=== PATIENT | male | born 1965 | race American Indian/Alaskan Native ===

== ENCOUNTER 2018-03-02 08:24 | Observation (INO) | payer OTHER ==
[2018-03-02 08:28] VITALS: BMI 27.2
--- NOTE | 2018-03-02 09:17 | ED PDOC ---
Syncope/Near Syncope/Dizziness Time Seen by Provider: 03/02/18 08:30 Chief Complaint (Nursing): Syncope Chief Complaint (Provider): Syncope History Per: Patient History/Exam Limitations: no limitations Onset/Duration Of Symptoms: Sudden Onset Possible Causative Factor(s): Vertigo Additional Complaint(s): 52 years old male presents to the ED for evaluation of dizziness and passing out on train prior to arrival. Patient cannot recall how the event of loss of consciousness happened. He denies any shortness of breath or chest pain. PMD: Dr. Ellison Past Medical History Reviewed: Historical Data, Nursing Documentation, Vital Signs Vital Signs: Last Vital Signs Temp 96.8 F L 03/02/18 08:28 Pulse 51 L 03/02/18 08:28 Resp 16 03/02/18 08:28 BP 138/81 03/02/18 08:28 Pulse Ox 98 03/02/18 08:28 - Medical History PMH: No Chronic Diseases - Surgical History Surgical History: No Surg Hx - Family History Family History: States: Unknown Family Hx - Social History Current smoker - smoking cessation education provided: Yes (Occasional) Alcohol: Occasional Drugs: Denies - Allergies Allergies/Adverse Reactions: Allergies Allergy/AdvReac Type Severity Reaction Status Date / Time Penicillins Allergy RASH Verified 03/02/18 08:35 Review of Systems ROS Statement: Except As Marked, All Systems Reviewed And Found Negative Cardiovascular: Negative for: Chest Pain Respiratory: Negative for: Shortness of Breath Neurological: Positive for: Dizziness Physical Exam - Reviewed Nursing Documentation Reviewed: Yes Vital Signs Reviewed: Yes - Physical Exam Appears: Positive for: Non-toxic, No Acute Distress Head Exam: Positive for: ATRAUMATIC, NORMOCEPHALIC Skin: Positive for: Normal Color, Warm, Dry Eye Exam: Positive for: Normal appearance ENT: Positive for: Normal ENT Inspection Neck: Positive for: Normal Cardiovascular/Chest: Positive for: Regular Rate, Rhythm. Negative for: Murmur Respiratory: Positive for: Normal Breath Sounds. Negative for: Respiratory Distress Gastrointestinal/Abdominal: Positive for: Normal Exam, Soft. Negative for: Tenderness Extremity: Positive for: Normal ROM Neurologic/Psych: Positive for: Alert, work over rig operator II-XII, Oriented, Gait (stable). Negative for: Motor/Sensory Deficits, Aphasia, Facial Droop - Laboratory Results Result Diagrams: 03/03/18 04:20 03/03/18 04:20 - ECG O2 Sat by Pulse Oximetry: 98 (RA) Pulse Ox Interpretation: Normal Medical Decision Making Medical Decision Making: Time: 904 Initial Impression: syncope, rule out cardiac ischemia Initial Plan: --CBC --CMP --Troponin --Chest X-Ray --Aspirin 325 mg PO Time: 844 EKG shows bradycardia with flipped T waves, 3 AVF V5 and V6. we have no prior. Time: 09 EKG repeated with a question of elevation of lateral lead. Results sent to Dr. Mazariegos who said it is not STEMI. Dr Mazariegos requested repetition of EKG in one hour and send it to him along with Troponin results. Time: 100 Chest X-Ray FINDINGS: LUNGS: No active pulmonary disease. PLEURA: No significant pleural effusion identified, no pneumothorax apparent. CARDIOVASCULAR: Normal. OSSEOUS STRUCTURES: No significant abnormalities. VISUALIZED UPPER ABDOMEN: Normal. OTHER FINDINGS: None. IMPRESSION: No active disease. Time: 1002 --Toponin results are within limits. --Results discussed again with Dr. Mazariegos who requested repeating Troponin in 1 hour. --Repeat EKG no change from prior Time: 105 Patient will be admitted for abnormal EKG and syncope. Time: 1145 CT Head FINDINGS: HEMORRHAGE: No intracranial hemorrhage. BRAIN: No mass effect or edema. No atrophy or chronic microvascular ischemic changes. VENTRICLES: Unremarkable. Patent cavum vergae. No hydrocephalus. CALVARIUM: Unremarkable. PARANASAL SINUSES: Unremarkable as visualized. No significant inflammatory changes. MASTOID AIR CELLS: Unremarkable as visualized. No inflammatory changes. OTHER FINDINGS: None. IMPRESSION: No acute intracranial pathology. Time: 1148 Repeat Troponin is withing normal limits. Patient is to be admitted to Dr. Dao who is medical service. 1155 dr Lon Beatty, the supervisor dehydrogenation electronics engineering professor, is aware of consult. ----- Scribe Attestation: Documented by Dary Gold, acting as a scribe for Pelon Dozier MD. Provider Scribe Attestation: All medical record entries made by the Scribe were at my direction and personally dictated by me. I have reviewed the chart and agree that the record accurately reflects my personal performance of the history, physical exam, medical decision making, and the department course for this patient. Disposition - Clinical Impression Clinical Impression: Syncope, Abnormal EKG - Patient ED Disposition Is Patient to be Admitted: Yes Counseled Patient/Family Regarding: Studies Performed, Diagnosis, Need For Followup - Disposition Disposition: Routine/Home Disposition Time: 11:25 Condition: STABLE
[2018-03-02 09:26] LABS: BASO % 0.4 % (0.0-2.0); EOS # 0.1 K/uL (0.0-0.7); EOS % 1.7 % (0.0-4.0); HEMOGLOBIN 14.9 g/dL (12.0-18.0); LYMPH # 3.1 K/uL (1.0-4.3); LYMPH % 56.9 % (20.0-40.0); MEAN CELL VOLUME 92.5 fl (80.0-94.0); MEAN CORPUSCULAR HEMOGLOBIN 31.8 pg (27.0-31.0); MEAN CORPUSCULAR HGB CONC 34.4 g/dL (33.0-37.0); MEAN PLATELET VOLUME 7.8 fl (7.2-11.7); MONO # 0.5 K/uL (0.0-0.8); MONO % 8.6 % (0.0-10.0); NEUT # 1.8 K/uL (1.8-7.0); NEUT % 32.4 % (50.0-75.0); NRBC % 0.1 % (0.0-0.0); RBC 4.69 Mil/uL (4.40-5.90); RED CELL DISTRIBUTION WIDTH 14.2 % (11.5-14.5); WHITE BLOOD COUNT 5.5 K/uL (4.8-10.8)
[2018-03-02 09:34] LABS: ALB/GLOB RATIO 1.1 (1.0-2.1); ALBUMIN 3.9 g/dL (3.5-5.0); ALT/SGPT 23 U/L (21-72); AST/SGOT 25 U/L (17-59); BLOOD UREA NITROGEN 13 mg/dl (9-20); CALCIUM 9.3 mg/dL (8.4-10.2); GFR AFRICAN-AMERICAN > 60; GFR NON-AFRICAN AMERICAN > 60
--- NOTE | 2018-03-02 10:03 | RAD ---
HISTORY: syncope COMPARISON: No prior. FINDINGS: LUNGS: No active pulmonary disease. PLEURA: No significant pleural effusion identified, no pneumothorax apparent. CARDIOVASCULAR: Normal. OSSEOUS STRUCTURES: No significant abnormalities. VISUALIZED UPPER ABDOMEN: Normal. OTHER FINDINGS: None. IMPRESSION: No active disease.
--- NOTE | 2018-03-02 11:46 | CT ---
PROCEDURE: CT HEAD WITHOUT CONTRAST. HISTORY: syncope COMPARISON: None available. TECHNIQUE: Axial computed tomography images were obtained through the head/brain without intravenous contrast. Radiation dose: Total exam DLP = 814.2 mGy-cm. This CT exam was performed using one or more of the following dose reduction techniques: Automated exposure control, adjustment of the mA and/or kV according to patient size, and/or use of iterative reconstruction technique. FINDINGS: HEMORRHAGE: No intracranial hemorrhage. BRAIN: No mass effect or edema. No atrophy or chronic microvascular ischemic changes. VENTRICLES: Unremarkable. Patent cavum vergae. No hydrocephalus. CALVARIUM: Unremarkable. PARANASAL SINUSES: Unremarkable as visualized. No significant inflammatory changes. MASTOID AIR CELLS: Unremarkable as visualized. No inflammatory changes. OTHER FINDINGS: None. IMPRESSION: No acute intracranial pathology.
--- NOTE | 2018-03-02 12:04 | CP.PCM.CON ---
History of Present Illness - History of Present Illness History of Present Illness: 52 years old male presents to the ED for evaluation of dizziness and passing out on train prior to arrival. Patient cannot recall how the event of loss of consciousness happened. He denies any shortness of breath or chest pain. Past Patient History - Past Social History Alcohol: Occasional Drugs: Denies - PSYCHIATRIC Hx Substance Use: No - SURGICAL HISTORY Hx Surgeries: No - ANESTHESIA Hx Anesthesia: No Meds Allergies/Adverse Reactions: Allergies Allergy/AdvReac Type Severity Reaction Status Date / Time Penicillins Allergy RASH Verified 03/02/18 08:35 Results - Vital Signs Recent Vital Signs: Last Vital Signs Temp 96.8 F L 03/02/18 08:28 Pulse 51 L 03/02/18 08:28 Resp 16 03/02/18 08:28 BP 138/81 03/02/18 08:28 Pulse Ox 98 03/02/18 12:02 - Labs Result Diagrams: 03/02/18 09:10 03/02/18 09:10 Labs: Laboratory Results - last 24 hr 03/02/18 03/02/18 03/02/18 09:10 09:10 10:59 WBC 5.5 RBC 4.69 Hgb 14.9 Hct 43.4 MCV 92.5 MCH 31.8 H MCHC 34.4 RDW 14.2 Plt Count 294 MPV 7.8 Neut % (Auto) 32.4 L Lymph % (Auto) 56.9 H [place] % (Auto) 8.6 Eos % (Auto) 1.7 Baso % (Auto) 0.4 Neut # (Auto) 1.8 Lymph # (Auto) 3.1 [place] # (Auto) 0.5 Eos # (Auto) 0.1 Baso # (Auto) 0.0 Sodium 140 Potassium 4.3 Chloride 103 Carbon Dioxide 27 Anion Gap 14 BUN 13 Creatinine 1.2 Est GFR ( Amer) > 60 Est GFR (Non-Af Amer) > 60 Random Glucose 128 H Calcium 9.3 Total Bilirubin 0.5 AST 25 ALT 23 Alkaline Phosphatase 85 Troponin I < 0.0120 < 0.0120 Total Protein 7.6 Albumin 3.9 Globulin 3.7 Albumin/Globulin Ratio 1.1
--- NOTE | 2018-03-02 16:42 | CARD ---
APPROVED REPORT EKG Measurement Heart [id number] IN [id number] <Conclusion> Sinus bradycardia ST & T wave abnormality, consider lateral ischemia Abnormal ECG
[2018-03-02] MEDS: Sodium Chloride 0.45% 1,000 ML IV SCH (18:29)
[2018-03-03] MEDS: Sodium Chloride 0.45% 1,000 ML IV SCH ×2 (03:30→16:08)
[2018-03-03 05:43] LABS: HEMOGLOBIN 14.7 g/dL (12.0-18.0); MEAN CELL VOLUME 93.5 fl (80.0-94.0); MEAN CORPUSCULAR HEMOGLOBIN 31.6 pg (27.0-31.0); MEAN CORPUSCULAR HGB CONC 33.8 g/dL (33.0-37.0); RBC 4.64 Mil/uL (4.40-5.90); WHITE BLOOD COUNT 6.3 K/uL (4.8-10.8)
[2018-03-03 06:00] LABS: BLOOD UREA NITROGEN 16 mg/dl (9-20); CALCIUM 9.3 mg/dL (8.4-10.2); GFR AFRICAN-AMERICAN > 60; GFR NON-AFRICAN AMERICAN > 60
[2018-03-03 09:27] VITALS: RESP 20
--- NOTE | 2018-03-03 10:56 | RAD ---
PROCEDURE: Bilateral hand radiographs. HISTORY: Left hand 4th digit swollen COMPARISON: None. FINDINGS: BONES: Right Hand: Deformity of the 5th digit consistent with old fracture submit Left Hand: Normal. No osteoarthritic changes. JOINTS: Right Hand: Normal. Left Hand: Normal. SOFT TISSUES: Right Hand: Normal. Left Hand: Normal. OTHER FINDINGS: None. IMPRESSION: No acute findings related to/accounting for the clinical presentation. Additional benign and/or incidental findings described above.
--- NOTE | 2018-03-03 11:22 | CARD ---
APPROVED REPORT <Conclusion> Sinus bradycardia ST & T wave abnormality, consider lateral ischemia Abnormal ECG
--- NOTE | 2018-03-03 11:25 | CARD ---
APPROVED REPORT <Conclusion> Sinus bradycardia T wave abnormality, consider inferolateral ischemia Abnormal ECG
--- NOTE | 2018-03-03 11:25 | CARD ---
APPROVED REPORT <Conclusion> Sinus bradycardia T wave abnormality, consider inferolateral ischemia Abnormal ECG
[2018-03-03 12:54] VITALS: BP 136/80; PULSE 55; TEMP 97.6
--- NOTE | 2018-03-03 13:10 | US ---
PROCEDURE: Duplex ultrasound of the carotid and vertebral arteries. HISTORY: syncope COMPARISON: None available. TECHNIQUE: Grayscale and duplex Doppler evaluation of the cervical carotid and vertebral arteries were performed. The common carotid, carotid bifurcations and cervical ICA and proximal ECA were evaluated. The vertebral arteries were evaluated for gross patency and direction. FINDINGS: RIGHT CAROTID ARTERIES: Common Carotid Artery: Normal. Maximal flow velocity of 51.5 cm/s. Carotid Bifurcation: Normal. Internal Carotid Artery:Normal. Maximal flow velocity of 85.3 cm/s. External Carotid Artery (proximal branches): Normal. Maximal flow velocity of 41.5 cm/s. ICA/CCA Ratio: 1.7 LEFT CAROTID ARTERIES: Common Carotid Artery: Normal. Maximal flow velocity of 56.4 cm/s. Carotid Bifurcation: Normal. Internal Carotid Artery:Normal. Maximal flow velocity of 84.9 cm/s. External Carotid Artery (proximal branches): Normal. Maximal flow velocity of 110.6 cm/s. ICA/CCA Ratio: 1.5 VERTEBRAL ARTERIES: Right Vertebral Artery: Patent. Antegrade flow. Left Vertebral Artery: Patent. Antegrade flow. OTHER FINDINGS: None. IMPRESSION: No significant stenosis is demonstrated involving the bilateral common or internal carotid arteries in the neck and antegrade flow is identified in the bilateral vertebral arteries. If there is further clinical suspicion of carotid arterial system stenosis follow-up CT or MR angiography with contrast is advised.
--- NOTE | 2018-03-03 15:07 | CARD ---
APPROVED REPORT EKG Measurement Heart [id number] <Conclusion> Normal sinus rhythm T wave abnormality, consider anterolateral ischemia Abnormal ECG
--- NOTE | 2018-03-03 15:16 | CARD ---
APPROVED REPORT EXAM: Two-dimensional and M-mode echocardiogram with Doppler and color Doppler. Other Information Quality : GoodRhythm : NSR INDICATION Syncope 2D DIMENSIONS IVSd1.96 (0.7-1.1cm)LVDd4.26 (3.9-5.9cm) LVOT Diameter2.33 (1.8-2.4cm)PWd1.43 (0.7-1.1cm) IVSs2.01 (0.8-1.2cm)LVDs3.03 (2.5-4.0cm) FS (%) 28.9 %PWs1.92 (0.8-1.2cm) M-Mode DIMENSIONS Left Atrium (MM)3.65 (2.5-4.0cm)IVSd1.29 (0.7-1.1cm) Aortic Root3.29 (2.2-3.7cm)LVDd5.12 (4.0-5.6cm) Aortic Cusp Exc.2.26 (1.5-2.0cm)PWd1.18 (0.7-1.1cm) IVSs2.00 cmFS (%) 32 % LVDs3.50 (2.0-3.8cm)PWs1.53 cm Mitral Valve MV E Mwdbxkkx30.5cm/sMV DECEL [id number] A [place]hl[place]hov95.3cm/s MV VIK39epZ/A ratio2.0MVA (PHT)2.91cm2 TDI Lateral E' Peak V15.56cm/sMedial E' Peak V9.04cm/sE/Lateral E'3.9 E/Medial E'6.7 Pulmonary Valve PV Peak [place]85.4cm/s LEFT VENTRICLE The left ventricle is normal size. There is mild to moderate concentric left ventricular hypertrophy. The left ventricular function is normal. The left ventricular ejection fraction is within the normal range. LVEF 65% There is normal LV segmental wall motion. The left ventricular diastolic function is normal. No left ventricle thrombus noted on this study. There is no ventricular septal defect visualized. There is no left ventricular aneurysm. There is no mass noted in the left ventricle. RIGHT VENTRICLE The right ventricle is normal size. There is normal right ventricular wall thickness. The right ventricular systolic function is normal. ATRIA The left atrium size is normal. The right atrium size is normal. The interatrial septum is intact with no evidence for an atrial septal defect. AORTIC VALVE The aortic valve is normal in structure. No aortic regurgitation is present. There is no aortic valvular stenosis. There is no aortic valvular vegetation. MITRAL VALVE The mitral valve is normal in structure. There is no evidence of mitral valve prolapse. There is no mitral valve stenosis. There is no mitral valve regurgitation noted. TRICUSPID VALVE The tricuspid valve is normal in structure. There is no tricuspid valve regurgitation noted. There is no tricuspid valve prolapse or vegetation. There is no tricuspid valve stenosis. PULMONIC VALVE The pulmonary valve is normal in structure. There is no pulmonic valvular regurgitation. There is no pulmonic valvular stenosis. GREAT VESSELS The aortic root is normal in size. The IVC is normal in size and collapses >50% with inspiration. PERICARDIAL EFFUSION The pericardium appears normal. There is no pleural effusion. <Conclusion> The left ventricle is normal size. There is mild to moderate concentric left ventricular hypertrophy. The left ventricular function is normal. The left ventricular ejection fraction is within the normal range. LVEF 65% The right ventricle is normal size. The left atrium size is normal. The aortic valve is normal in structure. The mitral valve is normal in structure.
--- NOTE | 2018-03-03 19:01 | CP.PCM.HP ---
History of Present Illness - History of Present Illness History of Present Illness: CC: Passing out History of Present Illness: A 52 years old male presents to the ED for evaluation of passing out on train after feeling lightheadedness prior to arrival for a brief period. Denies Incontinence or tongue bite. Patient cannot recall how the event of loss of consciousness happened. EKG in the ER showed Possible ST elevation, and code heart was activated which was aborted after the cut out press operator evaluated the EKG. Subsequent EKG with No changes, and Trop was negative. He denies any shortness of breath or chest pain. No similar episodes in the past. EKG repeated with a question of elevation of lateral lead. Results sent to Dr. Mazariegos who said it is not STEMI. Dr Mazariegos requested repetition of EKG in one hour and send it to him along with Troponin results. Present on Admission - Present on Admission Any Indicators Present on Admission: No Review of Systems - Review of Systems All systems: reviewed and no additional remarkable complaints except Past Patient History - Past Medical History & Family History Past Medical History?: No Past Family History: Reviewed and not pertinent - Past Social History Smoking Status: Never Smoked Alcohol: None Drugs: Denies - MUSCULOSKELETAL/RHEUMATOLOGICAL Hx Falls: Yes - PSYCHIATRIC Hx Substance Use: No - SURGICAL HISTORY Hx Surgeries: No - ANESTHESIA Hx Anesthesia: No Meds Allergies/Adverse Reactions: Allergies Allergy/AdvReac Type Severity Reaction Status Date / Time Penicillins Allergy RASH Verified 03/02/18 08:35 Physical Exam - Constitutional Appears: No Acute Distress - Head Exam Head Exam: ATRAUMATIC, NORMAL INSPECTION, NORMOCEPHALIC - Eye Exam Eye Exam: EOMI, Normal appearance, PERRL Pupil Exam: NORMAL ACCOMODATION, PERRL - ENT Exam ENT Exam: Mucous Membranes Moist, Normal Exam - Neck Exam Neck exam: Positive for: Full Rom, Normal Inspection - Respiratory Exam Respiratory Exam: Clear to Auscultation Bilateral, NORMAL BREATHING PATTERN - Cardiovascular Exam Cardiovascular Exam: REGULAR RHYTHM, +S1, +S2 - GI/Abdominal Exam GI & Abdominal Exam: Normal Bowel Sounds, Soft. absent: Tenderness - Extremities Exam Extremities exam: Positive for: normal inspection - Back Exam Back exam: FULL ROM, NORMAL INSPECTION - Neurological Exam Neurological exam: Alert, CN II-XII Intact, Normal Gait, Oriented x3, Reflexes Normal - Psychiatric Exam Psychiatric exam: Normal Affect, Normal Mood - Skin Skin Exam: Dry, Intact, Normal Color, Warm Results - Vital Signs Recent Vital Signs: Last Vital Signs Temp 97.6 F 03/03/18 12:00 Pulse 55 L 03/03/18 12:00 Resp 20 03/03/18 12:00 BP 136/80 03/03/18 12:00 Pulse Ox 100 03/03/18 12:00 - Labs Result Diagrams: 03/03/18 04:20 03/03/18 04:20 Labs: Laboratory Results - last 24 hr 03/03/18 03/03/18 03/03/18 00:52 04:20 04:20 WBC 6.3 RBC 4.64 Hgb 14.7 Hct 43.4 MCV 93.5 MCH 31.6 H MCHC 33.8 RDW 14.0 Plt Count 275 Sodium 140 Potassium 4.0 Chloride 106 Carbon Dioxide 28 Anion Gap 10 BUN 16 Creatinine 1.1 Est GFR ( Amer) > 60 Est GFR (Non-Af Amer) > 60 Random Glucose 100 Calcium 9.3 Troponin I < 0.0120 TSH 3rd Generation 0.61 03/03/18 09:47 WBC RBC Hgb Hct MCV MCH MCHC RDW Plt Count Sodium Potassium Chloride Carbon Dioxide Anion Gap BUN Creatinine Est GFR ( Amer) Est GFR (Non-Af Amer) Random Glucose Calcium Troponin I < 0.0120 TSH 3rd Generation - EKG Data EKG Interpreted by: Myself EKG shows normal: Sinus rhythm Rate: Bradycardia - EKG Data Interpretation: Acute Ischemia - Imaging and Cardiology Chest x-ray Status: Report reviewed by me Additional comment: FINDINGS: LUNGS: No active pulmonary disease. PLEURA: No significant pleural effusion identified, no pneumothorax apparent. CARDIOVASCULAR: Normal. OSSEOUS STRUCTURES: No significant abnormalities. VISUALIZED UPPER ABDOMEN: Normal. OTHER FINDINGS: None. IMPRESSION: No active disease. CT scan - head Status: Report reviewed by me Additional comment: CT HEAD WITHOUT CONTRAST. HISTORY: syncope COMPARISON: None available. TECHNIQUE: Axial computed tomography images were obtained through the head/brain without intravenous contrast. Radiation dose: Total exam DLP = 814.2 mGy-cm. This CT exam was performed using one or more of the following dose reduction techniques: Automated exposure control, adjustment of the mA and/or kV according to patient size, and/or use of iterative reconstruction technique. FINDINGS: HEMORRHAGE: No intracranial hemorrhage. BRAIN: No mass effect or edema. No atrophy or chronic microvascular ischemic changes. VENTRICLES: Unremarkable. Patent cavum vergae. No hydrocephalus. CALVARIUM: Unremarkable. PARANASAL SINUSES: Unremarkable as visualized. No significant inflammatory changes. MASTOID AIR CELLS: Unremarkable as visualized. No inflammatory changes. OTHER FINDINGS: None. IMPRESSION: No acute intracranial pathology. Assessment & Plan (1) Syncope Assessment and Plan: Serial Trop and EKG ASA IVF Echocardiography Carotid Doppler Status: Acute Priority: High (2) Abnormal EKG Status: Acute Priority: Medium
[2018-03-03 20:36] VITALS: O2SAT 98
== END 2018-03-03 15:58 | disposition home or self-care (01) ==
LOC: H.ER 08:24 → H.ERHOLD 11:51 → H.TEL 16:50
PROVIDERS: ADMIT Internal Medicine; ATTEND Internal Medicine
DX: R55 Syncope and collapse (principal); E86.0 Dehydration; R94.31 Abnormal electrocardiogram [ECG] [EKG]; F17.200 Nicotine dependence, unspecified, uncomplicated; Z88.0 Allergy status to penicillin
CPT/HCPCS: 36415; 70450; 71045; 73130; 80048; 80053; 82948; 83735; 84443; 84484; 85025; 85027; 85378; 93005; 93306; 93880; 99285; G0378; J7030